=== PATIENT | female | born 1965 | race Hispanic/Latino ===

== ENCOUNTER 2017-11-22 12:02 | Emergency (ER) | payer OTHER ==
[2017-11-22 12:03] VITALS: BMI 32.8
[2017-11-22] MEDS ORDERED: Sodium Chloride 0.9% 1,000 ML IV STA (12:22)
--- NOTE | 2017-11-22 12:47 | ED PDOC ---
Arrival/HPI - General Chief Complaint: Abdominal Pain Time Seen by Provider: 11/22/17 12:15 Historian: Patient - History of Present Illness Narrative History of Present Illness (Text): 11/22/17 12:38 51yo female with no pmhx who present with complaint of RLQ abdominal pain with associated nausea, nonbloody/billious vomiting and diarrhea x5days. States she was seen at [facility] and was referred to ED to r/o Appendicitis. She denies fever, chills, chest pain, SOB, any other complaint. Past Medical History - Provider Review Nursing Documentation Reviewed: Yes - Infectious Disease Hx of Infectious Diseases: None - Tetanus Immunization Tetanus Immunization: Unknown - Reproductive Menopause: No - Cardiac Hx Cardiac Disorders: No - Pulmonary Hx Respiratory Disorders: No - Neurological Hx Neurological Disorder: No - HEENT Hx HEENT Disorder: No - Renal Hx Renal Disorder: No - Endocrine/Metabolic Hx Endocrine Disorders: No - Hematological/Oncological Hx Blood Disorders: No - Integumentary Hx Dermatological Disorder: No - Musculoskeletal/Rheumatological Hx Musculoskeletal Disorders: No - Gastrointestinal Hx Gastrointestinal Disorders: Yes Hx Gastroesophageal Reflux: Yes - Genitourinary/Gynecological Hx Genitourinary Disorders: No - Psychiatric Hx Psychophysiologic Disorder: No Hx Substance Use: No - Surgical History Hx Musculoskeletal Surgery: Yes (left thigh surgery) - Anesthesia Hx Anesthesia: Yes Hx Anesthesia Reactions: No Hx Malignant Hyperthermia: No - Suicidal Assessment Feels Threatened In Home Enviroment: No Family/Social History - Physician Review Nursing Documentation Reviewed: Yes Family/Social History: Unknown Family HX Smoking Status: Never Smoked Hx Alcohol Use: Yes Frequency of alcohol use: Socially Hx Substance Use: No Hx Substance Use Treatment: No Allergies/Home Meds Allergies/Adverse Reactions: Allergies No Known Allergies Allergy (Verified 10/14/14 07:28) Home Medications: Home Meds Medication Instructions Recorded Confirmed Omeprazole 40 mg PO DAILY 11/22/17 11/22/17 Review of Systems - Physician Review All systems were reviewed & negative as marked: Yes - Review of Systems Constitutional: Normal Eyes: Normal ENT: Normal Respiratory: Normal Cardiovascular: Normal Gastrointestinal: Abdominal Pain, Diarrhea, Nausea, Vomiting. absent: Constipation, Hematochezia, Hematemesis Genitourinary Female: Normal Musculoskeletal: Normal Skin: Normal Neurological: Normal Endocrine: Normal Hemo/Lymphatic: Normal Psychiatric: Normal Physical Exam Vital Signs Reviewed: Yes Vital Signs Temp Pulse Resp BP Pulse Ox 11/22/17 14:36 98.1 F 82 18 125/77 97 11/22/17 14:30 98.1 F 82 16 125/77 100 11/22/17 12:06 98.4 F 82 16 137/78 97 11/22/17 12:03 98.4 F 82 16 137/78 97 Temperature: Afebrile Blood Pressure: Normal Pulse: Regular Respiratory Rate: Normal Appearance: Positive for: Well-Appearing, Non-Toxic, Comfortable Pain Distress: None Mental Status: Positive for: Alert and Oriented X 3 - Systems Exam Head: Present: Atraumatic, Normocephalic Pupils: Present: PERRL Extroacular Muscles: Present: EOMI Conjunctiva: Present: Normal Mouth: Present: Moist Mucous Membranes Neck: Present: Normal Range of Motion Respiratory/Chest: Present: Clear to Auscultation, Good Air Exchange. No: Respiratory Distress, Accessory Muscle Use Cardiovascular: Present: Regular Rate and Rhythm, Normal S1, S2. No: Murmurs Abdomen: Present: Tenderness (RLQ), Guarding (Voluntary), Other (soft). No: Distention, Peritoneal Signs, Rebound, McBurney's Point Tender, Rovsing's Sign Present Back: Present: Normal Inspection Upper Extremity: Present: Normal Inspection. No: Cyanosis, Edema Lower Extremity: Present: Normal Inspection. No: Edema Neurological: Present: GCS=15, CN II-XII Intact, Speech Normal Skin: Present: Warm, Dry, Normal Color. No: Rashes Psychiatric: Present: Alert, Oriented x 3, Normal Insight, Normal Concentration Medical Decision Making ED Course and Treatment: 11/22/17 20:22 pt presented for stated history. She was hemodynamically stable. Lab was ordered and reviewed. Abdominal pelvis CT was ordered to r/o appendicitis IMPRESSION: No acute abdominal or pelvic abnormality. Multiple hypoenhancing masses in the uterus likely represent fibroids. Correlation with pelvic ultrasound may be performed if clinically in the Mild hepatomegaly and fatty liver. Result was DW the pt and she was referred to her RETAIL SERVICES PROFESSIONAL. Zofran and pepcid rx w as given. TRT ED for any new or worsening symptoms. - Lab Interpretations Lab Results: 11/22/17 12:30 11/22/17 12:30 Lab Results 11/22/17 12:30: Sodium 141, Potassium 3.8, Chloride 100, Carbon Dioxide 29, Anion Gap 16, BUN 10, Creatinine 0.9, Est GFR ( Amer) > 60, Est GFR (Non- Af Amer) > 60, Random Glucose 98, Calcium 9.3, Magnesium 2.0, Total Bilirubin 0.4, AST 26, ALT 31, Alkaline Phosphatase 96, Total Protein 8.0, Albumin 4.4, Globulin 3.5, Albumin/Globulin Ratio 1.3, Lipase 68 11/22/17 12:30: Urine Color Yellow, Urine Appearance Clear, Urine pH 6.0, Ur Specific Leadore 1.020, Urine Protein Negative, Urine Glucose (UA) Negative, Urine Ketones Negative, Urine Blood Negative, Urine Nitrate Negative, Urine Bilirubin Negative, Urine Urobilinogen 0.2, Ur Leukocyte Esterase Negative 11/22/17 12:30: PT 10.6, INR 0.92, APTT 32.9 11/22/17 12:30: WBC 11.1 H D, RBC 4.28, Hgb 12.8, Hct 38.1, MCV 89.0, MCH 29.9, MCHC 33.6, RDW 13.4, Plt Count 422, MPV 11.6 H, Gran % 72.2 H, Lymph % (Auto) 20.8 L, Weakley % (Auto) 5.2, Eos % (Auto) 1.4 L, Baso % (Auto) 0.4, Gran # 8.00 H , Lymph # (Auto) 2.3, Weakley # (Auto) 0.6, Eos # (Auto) 0.2, Baso # (Auto) 0.04 - RAD Interpretation Radiology Orders: 11/22/17 13:08 ABD & PELVIS IV CONTRAST ONLY [CT] Stat - Medication Orders Current Medication Orders: Discontinued Medications Famotidine (Pepcid) 20 mg IVP STAT STA Stop: 11/22/17 12:23 Last Admin: 11/22/17 13:00 Dose: 20 mg IVP Administration Document 11/22/17 13:00 SRE (Rec: 11/22/17 13:00 SRE [id number] Charges for Administration # of IVP Administrations 1 Sodium Chloride (Sodium Chloride 0.9%) 1,000 mls @ 1,000 mls/hr IV .Q1H STA Stop: 11/22/17 13:21 Ondansetron HCl (Zofran Inj) 4 mg IVP STAT STA Stop: 11/22/17 12:23 Last Admin: 11/22/17 13:00 Dose: 4 mg IVP Administration Document 11/22/17 13:00 SRE (Rec: 11/22/17 13:00 SRE [id number] Charges for Administration # of IVP Administrations 1 Disposition/Present on Arrival - Present on Arrival Any Indicators Present on Arrival: No History of DVT/PE: No History of Uncontrolled Diabetes: No Urinary Catheter: No History of Decub. Ulcer: No History Surgical Site Infection Following: None - Disposition Have Diagnosis and Disposition been Completed?: Yes Diagnosis: Abdominal pain, Fibroid Disposition: HOME/ ROUTINE Disposition Time: 14:15 Patient Plan: Discharge Condition: STABLE Discharge Instructions (ExitCare): Acute Abdomen (Belly Pain), Adult (DC) Additional Instructions: Follow up with your Doctor/RETAIL SERVICES PROFESSIONAL Return to ED for any new or worsening symptoms Prescriptions: Famotidine [Pepcid] 20 mg PO DAILY #10 tab Ibuprofen [Motrin Tab] 600 mg PO Q6 #15 tab Ondansetron ODT [Zofran ODT] 4 mg PO Q6 #7 odt Referrals: FAMILY PROVIDER,NO [Primary Care Provider] - [facility] - Follow up with primary Forms: [employer] (Kosovan)
[2017-11-22 12:49] LABS: URINE BILIRUBIN NEGATIVE (NEGATIVE); URINE BLOOD NEGATIVE (NEGATIVE); URINE GLUCOSE (UA) NEGATIVE (NEGATIVE); URINE LEUKOCYTE ESTERASE NEGATIVE Leu/uL (NEGATIVE); URINE PROTEIN NEGATIVE mg/dL (<30 mg/dL); URINE UROBILINOGEN 0.2 E.U./dL (<1 E.U./dL)
[2017-11-22 12:50] LABS: BASO # 0.04 K/mm3 (0.0-2.0); BASO % 0.4 % (0.0-3.0); EOS # 0.2 (0.0-0.7); EOS % 1.4 % (1.5-5.0); GRAN % 72.2 % (50.0-68.0); HEMOGLOBIN 12.8 g/dL (12.0-16.0); LYMPH # 2.3 (1.2-3.4); LYMPH % 20.8 % (22.0-35.0); MEAN CORPUSCULAR HEMOGLOBIN 29.9 pg (25.0-35.0); MEAN CORPUSCULAR HGB CONC 33.6 g/dl (31.0-37.0); MEAN PLATELET VOLUME 11.6 fl (7.0-11.0); MONO # 0.6 (0.1-0.6); MONO % 5.2 % (1.0-6.0); RBC 4.28 10^6/uL (3.5-6.1); RED CELL DISTRIBUTION WIDTH 13.4 % (11.5-14.5); WHITE BLOOD COUNT 11.1 10^3/ul (4.5-11.0)
[2017-11-22 12:51] LABS: URINE APPEARANCE CLEAR (CLEAR); URINE COLOR YELLOW (YELLOW)
[2017-11-22 12:58] LABS: INR 0.92; PARTIAL THROMBOPLASTIN TIME 32.9 Seconds (25.1-36.5); PROTHROMBIN TIME 10.6 SECONDS (9.4-12.5)
[2017-11-22 13:01] LABS: ALB/GLOB RATIO 1.3 (1.1-1.8); ALBUMIN 4.4 g/dL (3.0-4.8); ALT/SGPT 31 U/L (7-56); AST/SGOT 26 U/L (14-36); BLOOD UREA NITROGEN 10 mg/dL (7-21); CALCIUM 9.3 mg/dL (8.4-10.5); GFR NON-AFRICAN AMERICAN > 60; LIPASE 68 U/L (23-300)
[2017-11-22] MEDS ORDERED: Iohexol 350 MG/100 ML VIAL ONE (13:22)
--- NOTE | 2017-11-22 14:07 | CT ---
Date of service: 11/22/2017 PROCEDURE: CT Abdomen and Pelvis with contrast HISTORY: RLQ pain COMPARISON: 10/14/2014 TECHNIQUE: CT scan of the abdomen and pelvis was performed without administration of intravenous contrast. Oral contrast was not administered. Coronal and sagittal reformatted images were obtained. Contrast dose: 100 mL Omnipaque 350 Radiation dose: Total exam DLP = 836.78 mGy-cm. This CT exam was performed using one or more of the following dose reduction techniques: Automated exposure control, adjustment of the mA and/or kV according to patient size, and/or use of iterative reconstruction technique. FINDINGS: LOWER THORAX: The visualized lungs are clear. LIVER: Mild hepatomegaly and fatty liver No gross lesion or ductal dilatation. GALLBLADDER AND BILE DUCTS: The gallbladder is contracted. PANCREAS: Normal in size with homogeneous enhancement. No gross lesion or ductal dilatation. SPLEEN: Normal in size and appearance. ADRENALS: No discrete nodule. KIDNEYS AND URETERS: Normal in size with homogeneous enhancement. No hydronephrosis. No solid mass. Few simple cysts in the kidneys VASCULATURE: No aortic aneurysm. BOWEL: No obstruction. No gross mural thickening. APPENDIX: Normal appendix. PERITONEUM: No free fluid. No free air. LYMPH NODES: No enlarged lymph nodes. BLADDER: Unremarkable. REPRODUCTIVE: There are the uterus is lobular and there are multiple hypodense masses. BONES: No acute fracture. Within normal limits for the patient's age. OTHER FINDINGS: None. IMPRESSION: No acute abdominal or pelvic abnormality. Multiple hypoenhancing masses in the uterus likely represent fibroids. Correlation with pelvic ultrasound may be performed if clinically in the Mild hepatomegaly and fatty liver.
[2017-11-22 14:35] VITALS: BP 125/77; PULSE 82; TEMP 98.1
[2017-11-22 14:37] VITALS: RESP 18; O2SAT 97
== END 2017-11-22 14:36 | disposition home or self-care (01) ==
LOC: ED 12:02
DX: R10.31 Right lower quadrant pain (principal); D25.9 Leiomyoma of uterus, unspecified
CPT/HCPCS: 74177; 80053; 81003; 83690; 83735; 85025; 85610; 85730; 96374; 96375; 99284; J2405; Q9967

== ENCOUNTER 2018-01-20 15:03 | Emergency (ER) | payer OTHER ==
[2018-01-20 15:03] VITALS: BMI 32.8
[2018-01-20 15:21] VITALS: BP 124/78; PULSE 82; RESP 18; TEMP 98.2; O2SAT 97
--- NOTE | 2018-01-20 15:38 | ED PDOC ---
Arrival/HPI - General Chief Complaint: Back Pain Time Seen by Provider: 01/20/18 15:08 Historian: Patient - History of Present Illness Narrative History of Present Illness (Text): 01/20/18 15:44 A 52 year old female, whose past medical history includes multiple herniated discs, presents to the emergency department complaining of worsening chronic back pain. Patient reports she was walking up ramp when she felt a sudden right upper muscle spasm to spine and went down to her leg. Patient denies any urinary symptoms, numbness/tingling/weakness, neck pain, any trauma/fall, or any other complaints at this time. PMD: Dr. Serra Past Medical History - Provider Review Nursing Documentation Reviewed: Yes - Infectious Disease Hx of Infectious Diseases: None - Tetanus Immunization Tetanus Immunization: Unknown - Cardiac Hx Cardiac Disorders: No - Pulmonary Hx Respiratory Disorders: No - Neurological Hx Neurological Disorder: No - HEENT Hx HEENT Disorder: No - Renal Hx Renal Disorder: No - Endocrine/Metabolic Hx Endocrine Disorders: No - Hematological/Oncological Hx Blood Disorders: No - Integumentary Hx Dermatological Disorder: No - Musculoskeletal/Rheumatological Hx Musculoskeletal Disorders: No Hx Back Pain: Yes Other/Comment: Injury 2 years ago - Gastrointestinal Hx Gastrointestinal Disorders: Yes Hx Gastroesophageal Reflux: Yes - Genitourinary/Gynecological Hx Genitourinary Disorders: No - Psychiatric Hx Psychophysiologic Disorder: No Hx Substance Use: No - Surgical History Hx Musculoskeletal Surgery: Yes (left thigh surgery) - Anesthesia Hx Anesthesia: Yes Hx Anesthesia Reactions: No Hx Malignant Hyperthermia: No - Suicidal Assessment Feels Threatened In Home Enviroment: No Family/Social History - Physician Review Nursing Documentation Reviewed: Yes Family/Social History: No Known Family HX Smoking Status: Never Smoked Hx Alcohol Use: Yes Frequency of alcohol use: Socially Hx Substance Use: No Hx Substance Use Treatment: No Allergies/Home Meds Allergies/Adverse Reactions: Allergies No Known Allergies Allergy (Verified 01/20/18 15:06) Review of Systems - Physician Review All systems were reviewed & negative as marked: Yes - Review of Systems Constitutional: absent: Fatigue, Weight Change, Other (no trauma/fall) ENT: absent: Hearing Changes Respiratory: absent: SOB, Cough, Sputum Cardiovascular: absent: Chest Pain Gastrointestinal: absent: Abdominal Pain, Constipation, Diarrhea, Nausea, Vomiting Genitourinary Female: absent: Dysuria Musculoskeletal: Back Pain (worsening chronic back pain). absent: Neck Pain Skin: absent: Rash, Pruritis, Skin Lesions Neurological: absent: Headache, Dizziness, Focal Weakness, Gait Changes, Speech Changes, Facial Droop, Disequilibrium, Other (no numbness/tingling/weakness) Physical Exam Vital Signs Reviewed: Yes Vital Signs Temp Pulse Resp BP Pulse Ox 01/20/18 15:20 98.2 F 82 18 124/78 97 Temperature: Afebrile Blood Pressure: Normal Pulse: Regular Respiratory Rate: Normal Appearance: Positive for: Well-Appearing, Non-Toxic, Comfortable Pain Distress: None Mental Status: Positive for: Alert and Oriented X 3 - Systems Exam Head: Present: Atraumatic, Normocephalic Pupils: Present: PERRL Extroacular Muscles: Present: EOMI Conjunctiva: Present: Normal Mouth: Present: Moist Mucous Membranes Neck: Present: Normal Range of Motion Respiratory/Chest: Present: Clear to Auscultation, Good Air Exchange. No: Respiratory Distress, Accessory Muscle Use Cardiovascular: Present: Regular Rate and Rhythm, Normal S1, S2. No: Murmurs Abdomen: No: Tenderness, Distention, Peritoneal Signs Back: Present: Paraspinal Tenderness (right lumbar paraspinal muscle spasm). N o: Midline Tenderness, Pain with Leg Raise Upper Extremity: Present: Normal Inspection. No: Cyanosis, Edema Lower Extremity: Present: Normal Inspection. No: Edema Neurological: Present: GCS=15, CN II-XII Intact, Speech Normal, Gait Normal Skin: Present: Warm, Dry, Normal Color. No: Rashes Psychiatric: Present: Alert, Oriented x 3, Normal Insight, Normal Concentration Medical Decision Making ED Course and Treatment: 01/20/18 15:44 Impression: 52 year old female with worsening chronic back pain. Neurologically intact and has pain mgmt follow-up Plan: -- Valium -- Toradol -- Reassess and disposition Prior Visits: Notes and results from previous visits were reviewed. Patient was last seen in the emergency department on 11/22/2017 for RLQ abdominal pain with associated nausea, nonbloody/billious vomiting and diarrhea. Patient was discharged home. Progress Notes: Back pain improved. Refusing narcotics. Instructed to follow-up with pain mgmt and workers compensation. Neurologically intact and ambulated out of ED without issue. - Medication Orders Current Medication Orders: Discontinued Medications Diazepam (Valium) 5 mg PO STAT STA; Protocol Stop: 01/20/18 15:26 Ketorolac Tromethamine (Toradol) 30 mg IM STAT STA Stop: 01/20/18 15:26 - Scribe Statement The provider has reviewed the documentation as recorded by the Cherelle Guzmán Provider Scribe Attestation: All medical record entries made by the Scribe were at my direction and personally dictated by me. I have reviewed the chart and agree that the record accurately reflects my personal performance of the history, physical exam, medical decision making, and the department course for this patient. I have also personally directed, reviewed, and agree with the discharge instructions and disposition. Disposition/Present on Arrival - Present on Arrival Any Indicators Present on Arrival: No History of DVT/PE: No History of Uncontrolled Diabetes: No Urinary Catheter: No History of Decub. Ulcer: No History Surgical Site Infection Following: None - Disposition Have Diagnosis and Disposition been Completed?: Yes Diagnosis: Back pain Disposition: HOME/ ROUTINE Disposition Time: 16:05 Patient Plan: Discharge Patient Problems: Current Active Problems Problem Status Onset Back pain Acute Condition: GOOD Discharge Instructions (ExitCare): Low Back Pain in Adults Additional Instructions: Follow-up with PMD and worker's compensation. Return to ED if condition worsens. Follow-up with your pain mgmt doctor. Forms: [facility] (Tuvaluan), WORK NOTE
== END 2018-01-20 17:00 | disposition home or self-care (01) ==
LOC: ED 15:03
DX: M54.9 Dorsalgia, unspecified (principal)
CPT/HCPCS: 96372; 99283; J1885

== ENCOUNTER 2018-03-04 16:06 | Emergency (ER) | payer OTHER ==
[2018-03-04 16:07] VITALS: BMI 32.8
[2018-03-04 16:28] VITALS: RESP 18; TEMP 98
[2018-03-04] MEDS ORDERED: Lidocaine 5% Patch TD ONE (17:16)
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
[2018-03-04 21:49] VITALS: BP 137/80; PULSE 75; O2SAT 100
== END 2018-03-04 19:13 | disposition home or self-care (01) ==
LOC: ED 16:06
DX: M54.9 Dorsalgia, unspecified (principal); V49.49XA Driver injured in collision with other motor vehicles in traffic accident, initial encounter; Y92.410 Unspecified street and highway as the place of occurrence of the external cause
CPT/HCPCS: 72131; 96372; 99284; J1885

== ENCOUNTER → 2018-07-06 | Outpatient (CLI) | payer OTHER | LOC: RAD 08:12 ==